=== PATIENT | male | born 1985 | race Caucasian/White ===

== ENCOUNTER 2016-06-24 06:16 | Emergency (ER) | payer OTHER | END 2016-06-24 10:21 | disposition critical access hospital (66) | LOC: ER 06:16 | DX: K92.2 Gastrointestinal hemorrhage, unspecified (principal); D72.829 Elevated white blood cell count, unspecified; I10 Essential (primary) hypertension; Z90.49 Acquired absence of other specified parts of digestive tract | CPT/HCPCS: 36415; 87507; 96361; 96365; 96366; 96368; 96375; 96376; Q9967 ==

== ENCOUNTER 2016-06-24 06:16 | Inpatient (IN) | payer OTHER ==
[~2016-06-24] VITALS: Ht 182.9 cm; Wt 140.7 kg
--- NOTE | 2016-06-25 10:55 | NUR ---
PATIENT EXITED ICU VIA W/C ACCOMPANIED BY OUTREACH TEAM MEMBER IN NO ACUTE DISTRESS TO HAVE AN ACUTE ABDOMINAL SERIES COMPLETED.
--- NOTE | 2016-06-25 11:08 | NUR ---
MARCELA RETURNED TO THE ICU VIA W/C ACCOMPANIED BY LAB DIRECTOR IN NO ACUTE DISTRESS AFTER HAVING AN ACUTE ABDOMINAL SERIES
== END 2016-06-28 16:35 | disposition home or self-care (01) | DRG 872 ==
LOC: ER 06:16 → ICU 10:20 → MED 10:20 → ER 10:22 → ICU 10:22 → ER 12:34 → ICU 12:34 → MED 12:34 → ICU 12:34 → MED 06-27 07:20
PROVIDERS: ADMIT Internal Medicine
DX: A41.9 Sepsis, unspecified organism (principal); A04.1 Enterotoxigenic Escherichia coli infection; K92.2 Gastrointestinal hemorrhage, unspecified; K92.0 Hematemesis; K92.1 Melena; F11.20 Opioid dependence, uncomplicated; Z68.41 Body mass index [BMI] 40.0-44.9, adult; R65.20 Severe sepsis without septic shock; E87.6 Hypokalemia; I95.9 Hypotension, unspecified; I10 Essential (primary) hypertension; Z79.899 Other long term (current) drug therapy; Z90.49 Acquired absence of other specified parts of digestive tract; R63.4 Abnormal weight loss; R00.0 Tachycardia, unspecified; E86.1 Hypovolemia
CPT/HCPCS: 36415; 80307; 87507; 97161-GP; Q9967